=== PATIENT | female | born 1975 | race African-American/Black ===

== ENCOUNTER 2019-03-19 04:31 | Inpatient (IN) | payer MEDICAID, OTHER ==
[~2019-03-19] VITALS: Ht 158.5 cm; Wt 96.6 kg
[2019-03-19] MEDS ORDERED: ALBUTEROL (0.083%) 2.5MG/3ML NEB HHN STA (04:37)
[2019-03-19] MEDS ORDERED: METHYLPREDNISOLONE SOD SUCC 125 MG/2 ML VIAL IV STA (04:37)
[2019-03-19] MEDS ORDERED: IPRATROPIUM BROMIDE (0.02%) 0.5MG/2.5ML NEB HHN STA (04:37)
[2019-03-19] MEDS ORDERED: MAGNESIUM 2 G PREMIX 50 ML IV STA (04:43)
[2019-03-19 05:08] LABS: BASOPHILS % 0.8 % (0.0-2.0); EOSINOPHILS % 2.5 % (0.0-5.0); HEMATOCRIT. 40.4 % (36.0-48.0); HEMOGLOBIN. 13.7 g/dL (12.0-16.0); LYMPHOCYTES % 20.2 % (20.0-50.0); MEAN CORPUSCULAR VOLUME 85.7 fL (81.0-99.0); MONOCYTES % 7.6 % (2.0-8.0); NEUTROPHILS % 68.9 % (40.0-76.0); PLATELET 446 x1000/uL (130-400); RED BLOOD CELL COUNT 4.72 mill/uL (4.2-5.4); RED CELL DISTRIBUTION WIDTH 13.8 % (11.6-14.6)
[2019-03-19 05:14] LABS: PROTHROMBIN TIME 10.2 sec (9.6-11.0)
[2019-03-19 05:17] LABS: CHLORIDE 108 mEq/L (98-107)
[2019-03-19 05:23] LABS: ETHANOL BLOOD < 10 mg/dL
[2019-03-19 05:31] LABS: HCG SCREEN INDETERMINATE
[2019-03-19 06:37] LABS: *AMPHETAMINES SCREEN URINE NEGATIVE (NEGATIVE); *BARBITURATES SCREEN URINE NEGATIVE (NEGATIVE); *BENZODIAZEPINES SCREEN URINE NEGATIVE (NEGATIVE); *COCAINE SCREEN URINE NEGATIVE (NEGATIVE)
[2019-03-19 06:38] LABS: METHADONE URINE SCREEN NEGATIVE (NEGATIVE); OPIATES URINE SCREEN NEGATIVE (NEGATIVE); PHENCYCLIDINE URINE SCREEN NEGATIVE (NEGATIVE)
[2019-03-19 06:46] LABS: CANNABINOID URINE SCREEN PRESUMTIVE POSITIVE (NEGATIVE)
[2019-03-19] MEDS ORDERED: ACETAMINOPHEN 325MG TABLET PO PRN (17:15)
[2019-03-19] MEDS ORDERED: ONDANSETRON HCL 4MG/2ML INJ IV PRN (17:15)
[2019-03-19] MEDS ORDERED: NITROGLYCERIN 0.4MG TABLET SL SL PRN (17:15)
[2019-03-19] MEDS ORDERED: DOCUSATE SODIUM 100MG CAPSULE PO PRN (17:15)
[2019-03-19] MEDS ORDERED: IPRATROPIUM/ALBUTEROL 0.5-3(2.5)MG/3ML NEB NEB PRN (17:15)
[2019-03-19] MEDS ORDERED: KETOROLAC 15MG/ML VIAL IV PRN (17:15)
[2019-03-19] MEDS ORDERED: GUAIFENESIN 200MG/10ML SUGAR FREE UDC PO PRN (17:15)
[2019-03-19] MEDS ORDERED: NA PHOS,M-B/NA PHOS,DI-BA ENEMA 118ML PR PRN (17:15)
[2019-03-19] MEDS ORDERED: LORAZEPAM 0.5MG TABLET PO PRN (17:15)
[2019-03-19] MEDS ORDERED: ENOXAPARIN 40MG/0.4ML SYR SUBCUT SCH (17:15)
[2019-03-19] MEDS ORDERED: MAGNESIUM/ALUMINUM HYDROXIDE/SIMETHICONE 30ML UDC PO PRN (17:15)
[2019-03-19] MEDS ORDERED: CLONIDINE 0.1MG TABLET PO PRN (17:15)
[2019-03-19] MEDS: IPRATROPIUM/ALBUTEROL 0.5-3(2.5)MG/3ML NEB HHN SCH (19:57)
[2019-03-19] MEDS ORDERED: ZOLPIDEM TARTRATE 5MG TABLET PO PRN (21:00)
[2019-03-19 22:59] LABS: CREATINE KINASE MB FRACTION < 1.0 ng/mL (0.5-3.6)
[2019-03-19] MEDS ORDERED: LEVOFLOXACIN 500MG PREMIX 100 ML IV NR (23:00)
[2019-03-19] MEDS ORDERED: METHYLPREDNISOLONE SOD SUCC 125 MG/2 ML VIAL IV NR (23:00)
[2019-03-19 23:10] LABS: CREATINE KINASE 1540 IU/L (26-192)
[2019-03-20] MEDS: IPRATROPIUM/ALBUTEROL 0.5-3(2.5)MG/3ML NEB HHN SCH ×7 (00:17→23:51)
[2019-03-20] MEDS ORDERED: GUAIFENESIN/DM 600MG/30MG ER TAB 12HR PO NR (02:00)
[2019-03-20 05:53] LABS: CHLORIDE 108 mEq/L (98-107)
[2019-03-20 05:59] LABS: PHOSPHORUS 2.4 mg/dL (2.5-4.9)
[2019-03-20 06:04] LABS: CREATINE KINASE MB FRACTION < 1.0 ng/mL (0.5-3.6)
[2019-03-20 06:13] LABS: CREATINE KINASE 1154 IU/L (26-192)
[2019-03-20] MEDS: METHYLPREDNISOLONE SOD SUCC 125 MG/2 ML VIAL IV SCH ×3 (10:31→21:46)
[2019-03-20 12:00] VITALS: BP 115/72
[2019-03-20 12:13] VITALS: BP 115/72
[2019-03-20] MEDS ORDERED: MONT10TA21 PO (13:16)
[2019-03-20] MEDS ORDERED: CHOL100053 PO (13:16)
[2019-03-20] MEDS ORDERED: IMIT25 PO (13:16)
[2019-03-20] MEDS ORDERED: ALBU90AE IH (13:16)
[2019-03-20] MEDS ORDERED: GABA-531 PO (13:16)
[2019-03-20] MEDS ORDERED: OMEP40CA12 PO (13:16)
[2019-03-20] MEDS ORDERED: IBUP1TAB73 PO (13:16)
[2019-03-20] MEDS ORDERED: LORA10TA7 PO (13:16)
[2019-03-20] MEDS ORDERED: IPRA4AER IH (13:16)
[2019-03-20] MEDS: ENOXAPARIN 30MG/0.3ML SYR SUBCUT SCH ×2 (13:39→21:45)
[2019-03-20] MEDS: FAMOTIDINE 20MG TABLET PO SCH ×3 (13:39→21:48)
[2019-03-20] MEDS: ASCORBIC ACID 500 MG TABLET PO SCH ×3 (13:39→21:48)
[2019-03-20 16:00] VITALS: BP 124/76
[2019-03-20 20:00] VITALS: BP 120/67
[2019-03-20] MEDS: GUAIFENESIN/DM 600MG/30MG ER TAB 12HR PO SCH (21:44)
[2019-03-20] MEDS ORDERED: LEVOFLOXACIN 500MG PREMIX 100 ML IV SCH (23:00)
[2019-03-21] VITALS: BP 115/60
[2019-03-21 04:00] VITALS: BP 98/47
[2019-03-21] MEDS: IPRATROPIUM/ALBUTEROL 0.5-3(2.5)MG/3ML NEB HHN SCH ×3 (05:03→13:25)
[2019-03-21] MEDS: METHYLPREDNISOLONE SOD SUCC 125 MG/2 ML VIAL IV SCH ×2 (06:18→14:24)
[2019-03-21 08:00] VITALS: BP 111/51
[2019-03-21] MEDS: ENOXAPARIN 30MG/0.3ML SYR SUBCUT SCH (08:08)
[2019-03-21] MEDS: GUAIFENESIN/DM 600MG/30MG ER TAB 12HR PO SCH (08:08)
[2019-03-21] MEDS: ASCORBIC ACID 500 MG TABLET PO SCH (08:08)
[2019-03-21] MEDS: FAMOTIDINE 20MG TABLET PO SCH (08:08)
[2019-03-21 12:00] VITALS: BP 127/71
[2019-03-21 12:02] VITALS: BP 127/71
[2019-03-21] MEDS ORDERED: LEVOFLOXACIN 500MG TABLET PO SCH (23:00)
== END 2019-03-21 15:05 | disposition home or self-care (01) | DRG 566 ==
LOC: ER 04:31 → 5WST 05:53 → EDBEDREQTM 05:57 → EDBEDREQ 05:57 → ENRESERV 19:14 → EDBEDREQSVC 20:15 → EDBEDREQTM 21:02 → ENRESERV 21:48 → CANRESERV 03-20 07:22 → ENRESERV 03-20 09:38
PROVIDERS: ADMIT Internal Medicine; ATTEND Internal Medicine
PROC: 5A09357 Assistance with Respiratory Ventilation, Less than 24 Consecutive Hours, Continuous Positive Airway Pressure (ICD-10-PCS; principal; 2019-03-19)
DX: O99.512 Diseases of the respiratory system complicating pregnancy, second trimester (principal); J96.00 Acute respiratory failure, unspecified whether with hypoxia or hypercapnia; J44.1 Chronic obstructive pulmonary disease with (acute) exacerbation; J45.901 Unspecified asthma with (acute) exacerbation; E83.39 Other disorders of phosphorus metabolism; E87.1 Hypo-osmolality and hyponatremia; O99.282 Endocrine, nutritional and metabolic diseases complicating pregnancy, second trimester; O99.322 Drug use complicating pregnancy, second trimester; F12.10 Cannabis abuse, uncomplicated; Z98.891 History of uterine scar from previous surgery; Z71.51 Drug abuse counseling and surveillance of drug abuser; Z88.2 Allergy status to sulfonamides; Z3A.20 20 weeks gestation of pregnancy
CPT/HCPCS: 36415; 71045; 80053; 80061; 80305; 80320; 82550; 82553; 83036; 83735; 83880; 84100; 84484; 84702; 84703; 85025; 87804; 93970; 94640; 96365; 96366; 96367; 96375; 99291; J1650; J1885; J1956; J2930; J3475; J7040; J7611; J7620; G0480